=== PATIENT | male | born 1950 | race Caucasian/White ===

== ENCOUNTER → 2023-08-07 08:29 | Outpatient (CLI) | payer OTHER, SELFPAY ==
--- NOTE | 2023-08-07 08:31 | DI.ECHO.S_ITS ---
[facility] +---------+ : : [address] : [place] : : : : [id number] : : : : Phone: [phone]---------+ Echocardiogram Report + + :Name: GARIMA CM Study Date: 08/07/2023 Height: 71 in : :[facility] ReadingLocation: Weight: 200 lb : : Gender: Male BSA: 2.1 m2 : :: 1950 Age: 72 yrs BP: 138/77 mmHg: :Reason For Study: ISCHMEIC HEART DISEASE : :Ordering Physician: DAPHNE, : :JOSELINE Performed By: Shonda Cameron : :Referring: JOSELINE SERNA : + + Interpretation Summary The ejection fraction is estimated to be 55-60%. Diastolic parameters suggest probable normal left ventricular diastolic function and normal filling pressures. The right ventricle is normal in size and function. No significant valvular abnormalities. Pulmonary artery pressures cannot be estimated because of the lack of a measurable TR jet velocity. Procedure: A two-dimensional transthoracic echocardiogram with color flow and Doppler was performed. The study quality was technically adequate. There is no prior echocardiogram noted for this patient. The patient was in sinus rhythm with heart rates between 81-87 bpm during the exam. Left Ventricle: The left ventricle is normal in size and wall thickness. The ejection fraction is estimated to be 55-60%. Diastolic parameters suggest probable normal left ventricular diastolic function and normal filling pressures. Right Ventricle: The right ventricle is normal in size and function. Atria: The left atrial size is normal. Right atrial size is normal. There is no Doppler evidence for an interatrial shunt. Mitral Valve: The mitral valve is normal in structure and function. There is no mitral regurgitation noted. Aortic Valve: The aortic valve is trileaflet. The aortic valve opens well. There is no aortic valve stenosis. No aortic regurgitation is present. Tricuspid Valve: The tricuspid valve is normal in structure and function. There is a trace or physiologic amount of tricuspid regurgitation. Pulmonary artery pressures cannot be estimated because of the lack of a measurable TR jet velocity. Pulmonic Valve: The pulmonic valve leaflets are thin and pliable; valve motion is normal. There is mild pulmonic regurgitation. Great Vessels: The aortic root is normal size. The dimensions of the ascending aorta are normal. The IVC is of normal diameter and collapses greater than 50% with a sniff. This suggests a low right atrial pressure of 3 mm Hg. Pericardium/ Pleura There is no pericardial effusion. There is no pleural effusion. MMode/2D Measurements & Calculations LVIDd: 4.2 cm LVOT diam: 2.1 cm LVIDs: 2.8 cm Ao root diam: 3.7 cm FS: 32.8 % asc Aorta Diam: 3.6 cm IVSd: 0.78 cm Ao Arch Diam (Prox Trans): 3.6 cm LVPWd: 0.89 cm LV barfield. diameter/BSA (cm/m^2): 2.0 LV sys. diameter/BSA (cm/m^2): 1.3 LA A2 area: 15.8 cm2 RA long axis: 4.6 cm LA A4 area: 15.4 cm2 RA area: 12.4 cm2 LA length (vol): 5.0 cm RA vol: 28.5 ml LA vol: 41.0 ml RA : 13.5 ml/m2 LA vol index: 19.4 ml/m2 IVC diam: 1.3 cm RVD1 (basal): 4.1 cm RVD2 (mid): 3.6 cm TAPSE: 2.2 cm Doppler Measurements & Calculations Ao V2 max: 136.3 cm/sec LVOT Max Nba: 110.1 cm/sec Ao V2 mean: 100.9 cm/sec LV V1 max P.8 mmHg Ao max P.4 mmHg LV V1 VTI: 20.4 cm Ao mean P.4 mmHg PHILIPPE(I,D): 2.7 cm2 Ao V2 VTI: 25.7 cm PHILIPPE(V,D): 2.8 cm2 sev ratio: 0.79 PHILIPPE indexed to BSA (cm^2/m^2): 1.3 MV E max nba: 72.9 cm/sec PA V2 max: 109.6 cm/sec MV A max nba: 75.3 cm/sec PA V2 mean: 83.1 cm/sec MV E/A: 0.97 PA mean P.0 mmHg Med Peak E' Nba: 7.1 cm/sec PA pr(Accel): 39.6 mmHg E/E' med: 10.3 Lat Peak E' Nba: 11.1 cm/sec E/E' lat: 6.6 E/e' average: 8.4 MV dec time: 0.23 sec SV(LVOT): 70.0 ml Reading Physician:10:30 AM
== END ==
PROVIDERS: Referring Provider Physician Assistant; Visit Provider Orthopaedic Surgery
DX: I37.1 Nonrheumatic pulmonary valve insufficiency (principal)
CPT/HCPCS: 93306